=== PATIENT | female | born 1935 | race Caucasian/White ===

== ENCOUNTER → 2022-07-23 | Outpatient (CLI) | payer MEDICARE, OTHER ==
--- NOTE | 2022-07-23 13:33 | Diagnostic Imaging Report ---
INDICATION: Follow-up previous foot fracture/injury. COMPARISON: 06/27/2022 FINDINGS: Multiple radiographic views of the left foot were obtained and again demonstrate nonacute oblique and transversely fractures of the distal 2nd through 5th metatarsals. There is stable mild persistent displacement of the 2nd through 4th fracture fragments. There may be some mild bridging callus formation suggestive of partial healing. Joint spaces are maintained. There is no intra-articular extension. No new acute osseous abnormality is seen. No unexpected foreign bodies are identified. IMPRESSION: 1. Redemonstration stable nonacute fractures of the 2nd through 5th metatarsals. Dictated by: Dictated on workstation # [id number]
== END ==
LOC: ORTHO 10:24
PROVIDERS: ATTEND Orthopaedic Surgery
DX: S92.322D Displaced fracture of second metatarsal bone, left foot, subsequent encounter for fracture with routine healing (principal); S92.332D Displaced fracture of third metatarsal bone, left foot, subsequent encounter for fracture with routine healing; S92.342D Displaced fracture of fourth metatarsal bone, left foot, subsequent encounter for fracture with routine healing; S92.352D Displaced fracture of fifth metatarsal bone, left foot, subsequent encounter for fracture with routine healing; X58.XXXD Exposure to other specified factors, subsequent encounter
CPT/HCPCS: 73630; G0463; 99203

== ENCOUNTER → 2022-08-26 | Outpatient (CLI) | payer MEDICARE, OTHER ==
--- NOTE | 2022-08-26 12:22 | Diagnostic Imaging Report ---
INDICATION: Follow-up previous foot fracture/injury. COMPARISON: 07/23/2022 FINDINGS: Multiple radiographic views of the left foot were obtained and again demonstrate nonacute oblique and transversely fractures of the distal 2nd through 5th metatarsals. Fracture fragments are in stable alignment compared to prior exam. There has been no significant interval progression of bridging callus formation. Fracture lines of the 2nd through 4th metatarsals remain conspicuous. Fracture line of the 5th metatarsal is not well demonstrated, but this may be related to projection. Joint spaces are maintained. There is no intra-articular extension. No new acute osseous abnormality is seen. No unexpected foreign bodies are identified. IMPRESSION: 1. Redemonstration stable nonacute fractures of the 2nd through 5th metatarsals. Dictated by: Dictated on workstation # [id number]
--- NOTE | 2022-08-26 13:10 | Diagnostic Imaging Report ---
INDICATION: Knee pain. COMPARISON: None FINDINGS: Multiple radiographic views of left knee were obtained and show underlying advanced osteoarthritic changes. This consists of tricompartmental joint space narrowing with prominent osteophyte formations, greatest involving the lateral tibial femoral compartment. Joint spaces are otherwise maintained. Osseous structures are intact. There is no evidence of acute fracture or dislocation. Small suprapatellar joint effusion is noted. No unexpected radio opaque foreign bodies are seen. IMPRESSION: 1. Advanced osteoarthritic changes of the left knee. 2. No acute fracture or dislocation. Dictated by: Dictated on workstation # [id number]
== END ==
LOC: ORTHO 10:41
PROVIDERS: ATTEND Orthopaedic Surgery
DX: S92.322D Displaced fracture of second metatarsal bone, left foot, subsequent encounter for fracture with routine healing (principal); S92.332D Displaced fracture of third metatarsal bone, left foot, subsequent encounter for fracture with routine healing; S92.342D Displaced fracture of fourth metatarsal bone, left foot, subsequent encounter for fracture with routine healing; S92.352D Displaced fracture of fifth metatarsal bone, left foot, subsequent encounter for fracture with routine healing; M17.12 Unilateral primary osteoarthritis, left knee; X58.XXXD Exposure to other specified factors, subsequent encounter
CPT/HCPCS: 73564; 73630; G0463; 99213

== ENCOUNTER → 2022-09-24 | Outpatient (CLI) | payer MEDICARE, OTHER ==
--- NOTE | 2022-09-24 15:18 | Diagnostic Imaging Report ---
INDICATION: Pain. COMPARISON: 08/26/2022 TECHNIQUE: 3 radiographs of the left foot dated 09/24/2022. FINDINGS: The osseous structures appear diffusely demineralized. Fractures involving the 2nd through 5th metatarsal necks are again identified. These appear stable from the prior examination, in unchanged alignment. Some of these fracture margins appear relatively well-corticated. No new fracture or dislocation. No destructive osseous process. Pes planus deformity. No suspicious radiopaque foreign body. IMPRESSION: Persistent fracturing of the 2nd through 5th metatarsal necks with alignment appearing since stable without significant healing noted at this time. 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 Osseous demineralization. Pes planus deformity of the foot. Dictated by: Dictated on workstation # [id number]
== END ==
LOC: ORTHO 10:22
PROVIDERS: ATTEND Orthopaedic Surgery
DX: S92.322D Displaced fracture of second metatarsal bone, left foot, subsequent encounter for fracture with routine healing (principal); S92.332D Displaced fracture of third metatarsal bone, left foot, subsequent encounter for fracture with routine healing; S92.342D Displaced fracture of fourth metatarsal bone, left foot, subsequent encounter for fracture with routine healing; S92.352D Displaced fracture of fifth metatarsal bone, left foot, subsequent encounter for fracture with routine healing; M17.12 Unilateral primary osteoarthritis, left knee; X58.XXXD Exposure to other specified factors, subsequent encounter
CPT/HCPCS: 73630; G0463; 99213